=== PATIENT | female | born 1990 ===

== ENCOUNTER 2016-07-07 04:39 | Inpatient (IN) | payer OTHER ==
[2016-07-07] VITALS (63 sets, daily range): BP systolic 103–151; BP diastolic 56–97; PULSE 60–166; TEMP 97.9–98.9
[~2016-07-07] VITALS: Ht 154.9 cm; Wt 78.6 kg
[2016-07-07 07:52] LABS: BASO % 0.4 % (0.0-2.0); EOS # 0.1 (0.0-0.7); EOS % 0.9 % (0-4.0); GRAN # 8.1 (1.4-6.5); GRAN % 77.5 % (42.2-75.2); LYMPH # 1.3 (1.2-3.4); LYMPH % 12.4 % (20.0-51.0); MEAN CELL VOLUME 89 fl (80.0-100.0); MEAN CORPUSCULAR HGB CONC 35 g/dl (33.0-37.0); MEAN PLATELET VOLUME 11.1 fl (7.4-10.4); MONO # 0.8 (0.1-0.6); MONO % 7.5 % (1.7-9.3); PLATELET COUNT 172 K/mm3 (130-400); RED BLOOD COUNT 3.77 M/mm3 (4.10-5.30); REDCELL DISTRIBUTION WIDTH-CV 13.2 % (11.5-14.5); WHITE BLOOD COUNT 10.5 K/mm3 (4.8-10.8)
[2016-07-07 08:04] LABS: HEMATOCRIT 33.4 % (37.0-47.0); HEMOGLOBIN 11.6 g/dl (12.5-16.0); MEAN CORPUSCULAR HEMOGLOBIN 31 pg (27.0-31.0)
[2016-07-07] MEDS ORDERED: PERCOCET 325 MG1 TA2 PO (08:53)
[2016-07-07] MEDS ORDERED: MOTRIN 800800 MG/TAB PO (08:53)
[2016-07-08 00:30] VITALS: BP 121/69; PULSE 67; TEMP 97.6
[2016-07-08 03:45] VITALS: BP 114/73; PULSE 82; TEMP 97.9
[2016-07-08 06:45] VITALS: BP 117/70; PULSE 74; TEMP 97.6
[2016-07-08 16:20] VITALS: BP 107/64; PULSE 71; TEMP 97.5
[2016-07-08 20:50] VITALS: BP 113/77; PULSE 76; TEMP 97.6
[2016-07-09 07:45] VITALS: BP 112/55; PULSE 72; TEMP 97.7
== END 2016-07-09 12:00 | disposition home or self-care (01) | DRG 775 ==
LOC: LDRO 04:39 → LDR 07:02 → OB 23:43 → LDRO 07-23 15:34
PROVIDERS: Obstetrics & Gynecology
PROC: 10E0XZZ Delivery of Products of Conception, External Approach (ICD-10-PCS; principal; 2016-07-07)
PROC: 0W8NXZZ Division of Female Perineum, External Approach (ICD-10-PCS; 2016-07-07)
DX: O42.02 Full-term premature rupture of membranes, onset of labor within 24 hours of rupture (principal); O77.0 Labor and delivery complicated by meconium in amniotic fluid; Z3A.37 37 weeks gestation of pregnancy; Z37.0 Single live birth
CPT/HCPCS: J2210; J2405; J2590; J2795; J7120

== ENCOUNTER → 2016-12-08 | Outpatient (REF) ==
[~2016-12-08] MED LIST: MOTRIN 800800 MG/TAB PO; PERCOCET 325 MG1 TA2 PO
== END ==
LOC: WSOH 13:16 → WSPT 14:15
DX: Z02.89 Encounter for other administrative examinations (principal)

== ENCOUNTER 2018-03-31 05:39 | Inpatient (IN) | payer OTHER ==
[2018-03-31] VITALS (28 sets, daily range): BP systolic 90–134; BP diastolic 50–81; PULSE 59–93; TEMP 97.1–98.6
[~2018-03-31] VITALS: Ht 154.9 cm; Wt 78.2 kg
[2018-03-31 06:44] LABS: BASO % 0.4 % (0.0-2.0); EOS % 0.4 % (0-4.0); GRAN # 7.2 (1.4-6.5); GRAN % 73.2 % (42.2-75.2); HEMATOCRIT 35.6 % (37.0-47.0); HEMOGLOBIN 12.4 g/dl (12.5-16.0); LYMPH # 1.6 (1.2-3.4); LYMPH % 15.8 % (20.0-51.0); MEAN CELL VOLUME 86 fl (80.0-100.0); MEAN CORPUSCULAR HEMOGLOBIN 30 pg (27.0-31.0); MEAN CORPUSCULAR HGB CONC 35 g/dl (33.0-37.0); MEAN PLATELET VOLUME 10.6 fl (7.4-10.4); MONO # 0.9 (0.1-0.6); MONO % 9.5 % (1.7-9.3); PLATELET COUNT 206 K/mm3 (130-400); RED BLOOD COUNT 4.15 M/mm3 (4.10-5.30); REDCELL DISTRIBUTION WIDTH-CV 13.2 % (11.5-14.5)
--- NOTE | 2018-03-31 06:45 | NUR ---
FHR tracing scratchy and intermittent due to maternal position. Pt on hands and knees per request and comfort with UCs. Intermittent tracing of maternal HR noted. RN remains at bedside with Pt.
--- NOTE | 2018-03-31 07:00 | NUR ---
0652- Pt assisted to sitting on side of bed for epidural placement. ARCADIO Todd. 0700- Single shot, see anesthesia record. 0703- Pt assisted to semi-fowlers with WL. Pt tolerated well.
--- NOTE | 2018-03-31 07:15 | NUR ---
0712- Dr Hernandez at bedside, Discusses plan of care. MD plan to perform SVE once Pt comfortable with epidural. Pt verbalizes understanding and denies questions.
[2018-03-31] MEDS ORDERED: PRENATAL PO (07:43)
[2018-03-31] MEDS ORDERED: PROBIOTIC FORMU1 CAP PO (07:44)
[2018-03-31] MEDS ORDERED: ZANTAC 7575 MG PO (07:45)
--- NOTE | 2018-03-31 07:45 | NUR ---
0743- Dr Hernandez at bedside. SVE /-2, AROM, thick meconium fluid noted, odorless. Pt assisted to RL with left leg up on stirrup. EFM and TOCO adjusted. FHR early decel noted, will monitor.
[2018-03-31] MEDS ORDERED: PERCOCET 325 MG1 TA2 PO (08:53)
[2018-03-31] MEDS ORDERED: MOTRIN 800800 MG/TAB PO (08:53)
--- NOTE | 2018-03-31 09:00 | NUR ---
0850- Pt repositioned to supine for SVE, /-1. 0855- Pandey placed by this RN without difficulty. FHR not tracing well, Audibly heard to be below baseline. Pt repositioned LL with right leg up on stirrup. EFM and TOCO adjusted. FHR tracing 105-110 bpm.
--- NOTE | 2018-03-31 10:25 | NUR ---
1011- SVE by Dr Hernandez, Complete/0. Pt begins pushing with MD Evans and this RN remain at bedside. 1019- FHT noted 70s-80s, Decision by to do vacuum assist. Pt educated, denies questions. Samantha Lara, nursery RN called to bedside. Milana, RN also at bedside. 1021- Vacuum on, Pt begins pushing, pop off noted. 1023- Vacuum on, Pt pushes with UC, pop off #2. 1024- Vacuum on, Pt pushes well, head decending well, pop off noted. Pt continues pushing. 1025- Spontaneous delivery of head, tight nuchal x1 cut at perineum. Spontaneous delivery of body with maternal push. Infant taken to warmer, tended to by Nursery RN. 1028- Spontaneous delivery of placenta, Pitocin started at 333ml/hr. Fundus massaged to firm. Vaginal repair completed by . Cord gases and cord blood obtained by . Pericare complted. Clean chux under Pt, ice pack to perineum. Pt repositioned to sitting up in bed. Tolerated delivery well.
--- NOTE | 2018-03-31 11:30 | NUR ---
1125- Fundus firm, handfull of small, quarter-half dollar sized cloted expressed with massage. No free-flow after. Chux pad changed. Pt tolerated well.
[2018-04-01 08:05] VITALS: BP 110/72; PULSE 68; TEMP 98.2
--- NOTE | 2018-04-01 10:06 | NUR ---
Initial visit; Parents thanked Route Sales Person for offering congratulations and God's blessings for the of their daughter. Route Sales Person thanked them for choosing [facility].
== END 2018-04-01 13:50 | disposition home or self-care (01) | DRG 807 ==
LOC: LDRO 05:39 → OB 06:00 → LDR 06:00 → OB 14:15
PROVIDERS: ADMIT Obstetrics & Gynecology
PROC: 10D07Z6 Extraction of Products of Conception, Vacuum, Via Natural or Artificial Opening (ICD-10-PCS; principal; 2018-03-31)
PROC: 0KQM0ZZ Repair Perineum Muscle, Open Approach (ICD-10-PCS; 2018-03-31)
PROC: 10907ZC Drainage of Amniotic Fluid, Therapeutic from Products of Conception, Via Natural or Artificial Opening (ICD-10-PCS; 2018-03-31)
DX: O76 Abnormality in fetal heart rate and rhythm complicating labor and delivery (principal); Z37.0 Single live birth; O77.0 Labor and delivery complicated by meconium in amniotic fluid; Z3A.39 39 weeks gestation of pregnancy; O69.81X0 Labor and delivery complicated by cord around neck, without compression, not applicable or unspecified; O70.1 Second degree perineal laceration during delivery; J45.20 Mild intermittent asthma, uncomplicated
CPT/HCPCS: J2590; J2795; J7120